=== PATIENT | male | born 1955 | race Caucasian/White ===

== ENCOUNTER 2016-09-24 14:50 | Inpatient (IN) | payer BC ==
--- NOTE | ~2016-09-24 | DS ---
Unit #: [id number] #: [id number] Patient: MARK CHUNG [id number] [address] [place], [place] [address] [id number] MR#: [id number] NAME: MARK CHUNG. ROOM: 560 Age: 61 Sex: M Admission Date: 09/24/2016 : 1955 Discharge Date: 09/28/2016 Attending Physician: Isatu Reece M.D. Primary Care Physician: Jamison Cheng Jr., M.D. DISCHARGE SUMMARY PRIMARY CARE PHYSICIAN MD2U. PRINCIPAL DIAGNOSES 1. Non-ST segment elevation myocardial infarction. 2. Acute kidney injury on chronic kidney disease stage 3 with discharge creatinine of 1.1. 3. Systemic inflammatory response syndrome. 4. Urinary obstruction secondary to benign prostatic hypertrophy. 5. Chronic atrial fibrillation, maintained rate control anticoagulation. 6. Nonsustained ventricular tachycardia. 7. Toxic metabolic encephalopathy likely secondary to acute kidney injury, now resolved. 8. Chronic thrombocytopenia. 9. Depression. 10. History of stroke. 11. Coronary artery disease, nonobstructive. 12. Gastroesophageal reflux disease. 13. Mild aortic stenosis. 14. Mild aortic regurgitation. 15. Onychomycosis. 16. Seizure disorder. CONSULTANTS Dr. Rivera, Cardiology. PROCEDURES 1. 2-dimensional echocardiogram on 08/25/2016 with ejection fraction of 50% to 55%. Moderate concentric left ventricular hypertrophy noted. Moderate aortic valve calcification with moderate aortic stenosis. Aortic valve area 1.3 cm2. Mild aortic regurgitation, mitral annular calcification, and mitral regurgitation noted. 2. Left-sided heart catheterization of 09/27/2016 with normal left ventricular function. No significant gradient across the aortic valve. Left main, LAD normal. Left circ had 30% to 40% stenosis. Right coronary had a 50% to 60% proximal stenosis caused by ulcerative plaque. 3. Chest x-ray on 09/24/2016 with no acute findings. 4. CT of the head without contrast on 09/24/2016 with encephalomalacia involving the entire right basal ganglia and periventricular white matter on the right. This extends the right parietal cortex. There is ipsilateral dilatation of the right lateral ventricle. 5. Bilateral renal ultrasound on 09/25/2016 with cortical thinning within the right kidney. Hyperechoic structures in both kidneys secondary to Unit #: [id number] #: [id number] Patient: MARK CHUNG vascular calcifications. Enlarged prostate noted. CLINICAL HISTORY AND HOSPITAL COURSE Mr. Chung is a nice 61-year-old male, who presents to the emergency department after a fall at home. He was also noted to be mildly confused. In the emergency department, the patient's urinalysis concerning for urinary tract infection. He was also found to be in atrial fibrillation with RVR. The patient was placed on metoprolol, empiric antibiotics, and subsequently admitted. In regard to the patient's urinary tract infection, again he was continued on Rocephin, but his urine culture was negative. Antibiotics were discontinued. He did meet SIRS criteria. He has had no fever, no leukocytosis during hospitalization. We will not continue any recurrent IV fluids. In regard to the patient's acute kidney injury, he was placed on IV fluids. A Yoon catheter was placed. Creatinine has now normalized to 1.1. His nephrotoxins medication has been discontinued i.e., his lisinopril/HCTZ has been changed to Norvasc. I am currently going to remove Yoon and await urine output. I have also placed him on Flomax due to BPH. Urine function will be followed up as an outpatient. On following admission, the patient had a mild bump in troponins 0.18 to high 0.32, and is now trending down. Cardiology was consulted. The patient subsequently underwent left-sided heart catheterization with findings as noted and he will undergo medical management only. I have also noted the patient may have recurrent nonsustained ventricular tachycardia, but his magnesium was low and we will continue magnesium supplementation upon discharge. His nonsustained ventricular tachycardia was asymptomatic. This will be followed up by Cardiology as an outpatient. The patient's other chronic condition remained stable. He is significantly weak and the family is wishing for discharge to assisted living which has already been arranged. Assuming the patient urinates, he could be discharged to assisted living later today. DISCHARGE CONDITION Stable. DISCHARGE STATUS Discharged to assisted living. DISCHARGE MEDICATIONS Flomax 0.4 mg daily with one refill; magnesium oxide 400 mg p.o. b.i.d. with one refill, Xarelto 15 mg daily, Keppra 1000 mg b.i.d., Zoloft 100 mg daily, clotrimazole 1% cream topically b.i.d. to rash on feet and toenails, Norvasc 5 mg daily with one refill, metoprolol succinate 100 mg b.i.d., Lipitor 10 mg at bedtime, aspirin 81 mg daily, Protonix 40 mg daily, Flexeril 5 mg b.i.d., nitroglycerin 0.4 mg sublingual q.5 minutes p.r.n. for chest pain number given is 50, vitamin D 50,000 units every 7 days. DISCHARGE INSTRUCTIONS The patient was instructed to follow a heart healthy diet. He can increase activity as tolerated. FOLLOWUP Unit #: [id number] #: [id number] Patient: MARK CHUNG The patient will follow up with Dr. Rivera and I have instructed the patient should follow up with MD2U in approximately 2 weeks. I recommend outpatient monitoring of renal function and perhaps outpatient urology referral if he develops recurrent urinary symptoms and/or acute kidney injury. Time spent on discharge 33 minutes. Dictated by... Isatu Reece M.D. WINIFRED/maria del rosario TD: 09/30/2016 02:55 JOB #: [id number] DISCHARGE SUMMARY X Isatu Reece MD DISCHARGE SUMMARY
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
--- NOTE | ~2016-09-24 | EKG ---
PATIENT: MARK LORENZO UNIT #: [id number] Ventricular Rate: 96 BPM Atrial Rate: 100 BPM QRS Duration: 110 ms Q-T Interval: 396 ms QTC Calculation(Bezet): 500 ms Calculated R [place]: 69 degrees Calculated T [place]: -45 degrees Diagnosis Line: Atrial fibrillation Diagnosis Line: T wave abnormality, consider lateral ischemia or Diagnosis Line: digitalis effect Diagnosis Line: Prolonged QT Diagnosis Line: Abnormal ECG Diagnosis Line: When compared with ECG of 26-SEP-2016 05:38, Diagnosis Line: Questionable change in QRS axis Diagnosis Line: Nonspecific T wave abnormality no longer evident Diagnosis Line: in Inferior leads Diagnosis Line: Confirmed by AYLIN ALEJANDRO MD ([id number]) on 09/29/2016 Diagnosis Line: 2:41:47 PM INTERPRETING MD: FLAVIA RYAN
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
--- NOTE | ~2016-09-24 | US77 ---
[facility] A Service of [facility] & [facility] RADIOLOGY TEXT RESULTS PATIENT: MARK LORENZO LOCATION: [facility] 560-01 : [birth year] UNIT #: [id number] AGE: [address]: Isatu Reece MD SEX: M ORDER DR: [id number] [facility] [address] [place], [place] [address] [id number] I MR#: [id number] Acc #: [id number] NAME: MARK LORENZO. : 1955 SEX: M STUDY DATE/TIME: 09/25/2016 15:45 UNIT: [facility] ROOM: [facility] STUDY DESCRIPTION: US Kidney Bilateral Complete Attending Physician: Isatu Reece M.D. Ordering Physician: Isatu Reece M.D. Primary Care Physician: Jamison Cheng Jr., M.D. MEDICAL IMAGING REPORT This report is preliminary unless electronic signature is present EXAM Bilateral renal ultrasound 09/25/2016 HISTORY Acute kidney injury. Patient has a creatinine of 2.1 and GFR 34.1 TECHNIQUE Tena-scale and color Doppler sonographic images were obtained through the kidneys and bladder. FINDINGS No solid or cystic renal masses are identified in either kidney. There is no evidence of hydronephrosis. Bladder is decompressed with a Yoon catheter. Patient does appear to have cortical thinning within the right kidney in particular which may reflect the sequela of prior insults. There are some hyperdensities identified within both kidneys, which the photoengraving proofer feels are probably vascular calcifications although certainly the presence of nonobstructing stones is not excluded. Patient's prostate gland is enlarged. IMPRESSION 1. No solid or cystic renal mass is identified. No hydronephrosis seen. 2. Areas of cortical thinning seen within the right kidney may reflect sequela of prior insults. 3. There are hyperechoic structures seen within both kidneys. Director Insurance feels that these are most likely vascular calcifications. Certainly the possibility of some nonobstructing stones is not excluded. 4. Bladder is decompressed with a Yoon catheter and the prostate gland is enlarged. Dictated by... Leonarda Partida M.D. [facility] A Service of [facility] & [facility] RADIOLOGY TEXT RESULTS PATIENT: MARK LORENZO LOCATION: [facility] 560-01 : [birth year] UNIT #: [id number] AGE: [address]: Isatu Reece MD SEX: M ORDER DR: THIS IS AN ELECTRONICALLY VERIFIED REPORT Leonarda Partida M.D. at 09/26/2016 10:54 AM BENNIE/adair TD: 09/25/2016 18:54 JOB #: [id number] MEDICAL IMAGING REPORT COPY
--- NOTE | ~2016-09-24 | EKG ---
PATIENT: MARK LORENZO UNIT #: [id number] Ventricular Rate: 84 BPM Atrial Rate: 89 BPM QRS Duration: 106 ms Q-T Interval: 390 ms QTC Calculation(Bezet): 460 ms Calculated R [place]: 6 degrees Calculated T [place]: -153 degrees Diagnosis Line: Atrial fibrillation with premature ventricular or Diagnosis Line: aberrantly conducted complexes Diagnosis Line: Cannot rule out Anterior infarct , age Diagnosis Line: undetermined Diagnosis Line: Abnormal ECG Diagnosis Line: When compared with ECG of 24-SEP-2016 15:09, Diagnosis Line: No significant change was found Diagnosis Line: Confirmed by AYLIN ALEJANDRO MD ([id number]) on 09/26/2016 Diagnosis Line: 7:10:11 AM INTERPRETING MD: FLAVIA RYAN
--- NOTE | ~2016-09-24 | CR72 ---
[facility] A Service of [facility] RADIOLOGY TEXT RESULTS PATIENT: MARK LORENZO LOCATION: [facility] 560-01 : [birth year] UNIT #: [id number] AGE: [address]: Isatu Reece MD SEX: M ORDER DR: [id number] [facility] [address] [place], [place] [address] [id number] MR#: [id number] Acc #: [id number] NAME: MARK LORENZO. : 1955 SEX: M STUDY DATE/TIME: 09/24/2016 15:33 UNIT: JIAN ROOM: STUDY DESCRIPTION: CR Chest Single View Portable Attending Physician: Alex Schumacher M.D. Ordering Physician: Alex Schumacher M.D. Primary Care Physician: Jamison Cheng Jr., M.D. MEDICAL IMAGING REPORT This report is preliminary unless electronic signature is present EXAM Portable chest 09/24 INDICATIONS Chest pain, shortness of air and acute mental status changes that started yesterday. History of hypertension. TECHNIQUE/COMPARISON AP portable chest is compared with 06/08/2015 FINDINGS Granulomatous calcifications are noted in the left hilum. Cardiac and mediastinal contours are within normal limits. The lungs are clear. No pneumothorax is seen. Vascularity is normal. IMPRESSION No active disease. Dictated by... Mark Bethea Jr., M.D. THIS IS AN ELECTRONICALLY VERIFIED REPORT Mark Bethea Jr., M.D. at 09/25/2016 8:47 AM RLK/cora TD: 09/24/2016 17:57 JOB #: [id number] MEDICAL IMAGING REPORT COPY
--- NOTE | ~2016-09-24 | EKG ---
PATIENT: MARK LORENZO UNIT #: [id number] Ventricular Rate: 122 BPM Atrial Rate: 136 BPM QRS Duration: 100 ms Q-T Interval: 348 ms QTC Calculation(Bezet): 495 ms Calculated R [place]: -23 degrees Calculated T [place]: 145 degrees Diagnosis Line: Atrial fibrillation with rapid ventricular Diagnosis Line: response Diagnosis Line: Nonspecific ST and T wave abnormality Diagnosis Line: Abnormal ECG Diagnosis Line: When compared with ECG of 17-JUL-2016 12:08, Diagnosis Line: Nonspecific T wave abnormality now evident in Diagnosis Line: Anterior leads Diagnosis Line: Confirmed by AYLIN ALEJANDRO MD ([id number]) on 09/25/2016 Diagnosis Line: 7:18:33 AM INTERPRETING MD: FLAVIA RYAN
--- NOTE | ~2016-09-24 | CT71 ---
[facility] A Service of [facility] RADIOLOGY TEXT RESULTS PATIENT: MARK LORENZO LOCATION: C5B 560-01 : 51 UNIT #: [id number] AGE: [address]: Isatu Reece MD SEX: M ORDER DR: [id number] [facility] [address] [place], [place] [address] [id number] MR#: [id number] Acc #: [id number] NAME: MARK LORENZO. : 1955 SEX: M STUDY DATE/TIME: 09/24/2016 16:11 UNIT: [facility] ROOM: STUDY DESCRIPTION: CT Head Wo Contrast Attending Physician: Alex Schumacher M.D. Ordering Physician: Alex Schumacher M.D. Primary Care Physician: Jamison Cheng Jr., M.D. MEDICAL IMAGING REPORT This report is preliminary unless electronic signature is present EXAM CT of the brain without contrast. DATE OF EXAM 09/24/2016 COMPARISON 06/08/2015 HISTORY Fell out of wheelchair last evening, found on floor, confused. TECHNIQUE Transaxial imaging of the brain was performed without contrast and is directly compared to the patient's most recent examination of June 08, 2015. NOTE: This CT exam was performed with one or more of the following radiation dose reduction techniques: automatic exposure control, adjustment of mA and/or kV according to patient size, and iterative reconstruction. FINDINGS There is generalized enlargement of the ventricles and CSF-containing spaces. There is an area of encephalomalacia within the right basal ganglia extending into the right parietal lobe involving the white matter and cortex. This is a relatively small segment. There is involvement of the periventricular white matter on the right. The right lateral ventricle shows ipsilateral compensatory dilatation. I do not see any mass lesions, mass effect evidence of acute hemorrhage or edema. No intra or extraaxial fluid collections are present. Bone windows are reviewed. No fractures are identified. CONCLUSION Area of encephalomalacia likely related to a prior stroke involving the [facility] A Service [facility] RADIOLOGY TEXT RESULTS PATIENT: MARK LORENZO LOCATION: C5B 560-01 : 51 UNIT #: [id number] AGE: [address]: Isatu Reece MD SEX: M ORDER DR: entire right basal ganglia and with some involvement of the periventricular white matter on the right and extending out to the right parietal cortex in 1 small area. There is ipsilateral dilatation of the right lateral ventricle. No acute intracranial findings. Dictated by... Zack Calderón M.D. THIS IS AN ELECTRONICALLY VERIFIED REPORT Zack Calderón M.D. at 09/26/2016 4:49 PM CRISTOPHER/manuel TD: 09/24/2016 19:48 JOB #: [id number] MEDICAL IMAGING REPORT COPY
[~2016-09-24 14:50] MED LIST: ASPIRIN PO; BENZONATATE200 M1 PO; COUMADIN5 MG PO; IMODIUM2 MG PO; LIPITOR PO; PROTONIX PO; VITAMIN D50000 UNIT PO; ZOLOFT PO
[2016-09-24 16:04] LABS: ALBUMIN SERUM 3.8 g/dL (3.5-5.0); BILIRUBIN,TOTAL 1.1 mg/dL (0.2-2.0); BUN/CREATININE RATIO 28.8; CALCIUM SERUM 9.3 mg/dL (8.4-10.2); CREATININE SERUM 2.5 mg/dL (0.6-1.4); GLOM FILT RATE Estimated 27.9 mL/min (>60); POTASSIUM 4.9 mmol/L (3.5-5.1); PROTEIN TOTAL SERUM 7.3 g/dL (6.0-8.3)
[2016-09-24 16:06] LABS: BASOPHIL# 0.1 X10e3 (0-0.3); BASOPHIL% 0.4 % (0-2.5); EOSINOPHIL% 0.1 % (0.0-7.0); HEMATOCRIT 40.8 % (38.0-50.0); HEMOGLOBIN 13.3 gm/dL (13.0-16.0); LYMPHOCYTE# 1.4 X10e3 (1.0-3.5); LYMPHOCYTE% 7.9 % (17.0-45.0); MEAN CELL VOLUME 85.3 FL (83-96); MEAN CORPUSCULAR HEMOGLOBIN 27.8 PG (28-34); MEAN CORPUSCULAR HGB CONC 32.5 g/dL (30-36); MEAN PLATELET VOLUME 10.4 FL (6.5-11.5); MONOCYTE# 0.7 X10e3 (0-1.0); NEUTROPHIL# 15.9 X10e3 (1.5-7.1); NEUTROPHIL% 87.6 % (40-75); PLATELET COUNT 90 X10e3 (140-420); RED BLOOD COUNT 4.79 X10e (3.90-5.60); RED CELL DISTRIBUTION WIDTH 15.4 % (11.0-15.5); WHITE BLOOD COUNT 18.1 X10e3 (4.0-10.5)
[2016-09-24 16:12] LABS: DIFF IND YES
[2016-09-24] MEDS ORDERED: LEVETIRACETAM1000 MG PO (17:13)
[2016-09-24] MEDS ORDERED: ATORVASTATIN CA10 MG PO (17:14)
[2016-09-24] MEDS ORDERED: METOPROLOL SUC100 MG PO (17:14)
[2016-09-24] MEDS ORDERED: XARELTO15 MG PO (17:14)
[2016-09-24] MEDS ORDERED: SERTRALINE HCL100 M1 PO (17:14)
[2016-09-24] MEDS ORDERED: LISINOPRIL-HCTZ1 T14 PO (17:15)
[2016-09-24] MEDS ORDERED: VITAMIN D50000 UNIT PO (17:15)
[2016-09-24] MEDS ORDERED: CYCLOBENZAPRINE5 MG PO (17:16)
[2016-09-24 17:25] LABS: URINE APPEARANCE TURBID; URINE BILIRUBIN NEG (NEG); URINE BLOOD 3+ (NEG); URINE COLOR YELLOW; URINE GLUCOSE NEG (NEG); URINE KETONE TRACE (NEG); URINE LEUKOCYTE ESTERASE 3+ (NEG); URINE NITRATE NEG (NEG); URINE PH 7.5 (5-8); URINE PROTEIN 1+ (NEG); URINE SPECIFIC GRAVITY 1.019 (1.003-1.035); URINE UROBILINOGEN 0.2 MG/DL (NEG)
[2016-09-24 17:36] LABS: ANISOCYTOSIS MOD; PLATELET ESTIMATE DECREASED (NORMAL); POIKILOCYTOSIS SL
[2016-09-24 17:42] LABS: CULTURE INDICATED? YES; URINE BACTERIA AUWI 2+ (NEGATIVE); URINE SQUAMOUS EPITHELIAL CELL OCCAS /[HPF]
[2016-09-24 18:46] LABS: POC - CKMB 19.8 ng/mL (0.0-7.9); POC - TROPONIN 0.13 ng/mL (<=0.05)
[2016-09-24 19:59] LABS: INR 1.1; PARTIAL THROMBOPLASTIN TIME 32.9 SECONDS (23.5-31.3)
[2016-09-25 03:36] LABS: BASOPHIL# 0.1 X10e3 (0-0.3); BASOPHIL% 0.6 % (0-2.5); DIFF IND NO; EOSINOPHIL# 0.1 X10e3 (0-0.7); EOSINOPHIL% 0.6 % (0.0-7.0); HEMOGLOBIN 12.4 gm/dL (13.0-16.0); LYMPHOCYTE# 1.5 X10e3 (1.0-3.5); LYMPHOCYTE% 10.1 % (17.0-45.0); MEAN CELL VOLUME 85.3 FL (83-96); MEAN CORPUSCULAR HEMOGLOBIN 27.9 PG (28-34); MEAN CORPUSCULAR HGB CONC 32.7 g/dL (30-36); MEAN PLATELET VOLUME 10.6 FL (6.5-11.5); MONOCYTE# 0.8 X10e3 (0-1.0); MONOCYTE% 5.4 % (3.0-12.0); NEUTROPHIL# 12.1 X10e3 (1.5-7.1); NEUTROPHIL% 83.3 % (40-75); PLATELET COUNT 89 X10e3 (140-420); RED BLOOD COUNT 4.45 X10e (3.90-5.60); WHITE BLOOD COUNT 14.5 X10e3 (4.0-10.5)
[2016-09-25 03:44] LABS: CALCIUM SERUM 8.6 mg/dL (8.4-10.2); CREATININE SERUM 2.1 mg/dL (0.6-1.4); GLOM FILT RATE Estimated 34.1 mL/min (>60); POTASSIUM 3.8 mmol/L (3.5-5.1)
[2016-09-25 16:14] LABS: CREATININE,RANDOM URINE 79 mg/dL; SODIUM URINE RANDOM 94 mmol/L
[2016-09-26 05:42] LABS: HEMATOCRIT 31.7 % (38.0-50.0); MEAN CELL VOLUME 86.1 FL (83-96); MEAN CORPUSCULAR HEMOGLOBIN 27.7 PG (28-34); MEAN CORPUSCULAR HGB CONC 32.2 g/dL (30-36); MEAN PLATELET VOLUME 9.5 FL (6.5-11.5); RED BLOOD COUNT 3.68 X10e (3.90-5.60); RED CELL DISTRIBUTION WIDTH 15.2 % (11.0-15.5)
[2016-09-26 06:06] LABS: WHITE BLOOD COUNT 7.2 X10e3 (4.0-10.5)
[2016-09-26 06:08] LABS: HEMOGLOBIN 10.2 gm/dL (13.0-16.0)
[2016-09-26 06:27] LABS: BLOOD UREA NITROGEN 42 mg/dL (9-23); BUN/CREATININE RATIO 38.18; CARBON DIOXIDE 22 mmol/L (22-31); CHLORIDE 115 mmol/L (100-111); CHOLESTEROL 81 mg/dL (0-200); CREATININE SERUM 1.1 mg/dL (0.6-1.4); GLOM FILT RATE Estimated ABOVE60 mL/min (>60); GLUCOSE FASTING 64 mg/dL (70-110); HDL CHOLESTEROL 21 mg/dL (29-75); LDL CHOLESTEROL 37 mg/dL (-130); LDL/HDL RATIO 2 RATIO (0-4); MAGNESIUM 1.4 mg/dL (1.6-3.0); POTASSIUM 3.6 mmol/L (3.5-5.1); SODIUM 139 mmol/L (135-145); TRIGLYCERIDES 114 mg/dL (10-160)
[2016-09-27 06:18] LABS: HEMATOCRIT 34.4 % (38.0-50.0); HEMOGLOBIN 11.3 gm/dL (13.0-16.0); MEAN CELL VOLUME 85.3 FL (83-96); MEAN CORPUSCULAR HGB CONC 32.9 g/dL (30-36); MEAN PLATELET VOLUME 9.7 FL (6.5-11.5); RED BLOOD COUNT 4.03 X10e (3.90-5.60); RED CELL DISTRIBUTION WIDTH 15.1 % (11.0-15.5); WHITE BLOOD COUNT 6.3 X10e3 (4.0-10.5)
[2016-09-27 06:30] LABS: PARTIAL THROMBOPLASTIN TIME 22.7 SECONDS (23.5-31.3); PROTHROMBIN TIME (PATIENT) 10.7 SECONDS (9.6-11.5)
[2016-09-27 07:38] LABS: BLOOD UREA NITROGEN 33 mg/dL (9-23); CALCIUM SERUM 8.8 mg/dL (8.4-10.2); CARBON DIOXIDE 22 mmol/L (22-31); CHLORIDE 108 mmol/L (100-111); CREATININE SERUM 1.1 mg/dL (0.6-1.4); GLOM FILT RATE Estimated ABOVE60 mL/min (>60); GLUCOSE FASTING 86 mg/dL (70-110); MAGNESIUM 1.7 mg/dL (1.6-3.0); POTASSIUM 4.2 mmol/L (3.5-5.1); SODIUM 138 mmol/L (135-145)
[2016-09-28] MEDS ORDERED: FLOMAX0.4 M1 PO (13:22)
[2016-09-28] MEDS ORDERED: MAG-OXIDE400 MG PO (13:25)
[2016-09-28] MEDS ORDERED: LOTRIMIN 1% CR30 GM EXT (13:26)
[2016-09-28] MEDS ORDERED: NORVASC PO (13:28)
[2016-09-28] MEDS ORDERED: CHEWABLE ASPIRI81 MG PO (13:29)
[2016-09-28] MEDS ORDERED: PROTONIX PO (13:30)
[2016-09-28] MEDS ORDERED: NITROGLYCERIN0.4 MG SL (13:33)
== END 2016-09-28 14:20 | disposition home or self-care (01) | DRG 280 ==
LOC: CED 14:50 → CEDOF 19:37 → C4B 21:25 → C5B 09-25 08:01
PROVIDERS: Emergency Medicine; Internal Medicine; Internal Medicine Cardiovascular Disease
PROC: B24BYZZ Ultrasonography of Heart with Aorta using Other Contrast (ICD-10-PCS; 2016-09-25)
PROC: 4A023N7 Measurement of Cardiac Sampling and Pressure, Left Heart, Percutaneous Approach (ICD-10-PCS; principal; 2016-09-27)
PROC: B211YZZ Fluoroscopy of Multiple Coronary Arteries using Other Contrast (ICD-10-PCS; 2016-09-27)
PROC: B215YZZ Fluoroscopy of Left Heart using Other Contrast (ICD-10-PCS; 2016-09-27)
PROC: 0HBRXZZ Excision of Toe Nail, External Approach (ICD-10-PCS; 2016-09-27)
PROC: 0HBRXZZ Excision of Toe Nail, External Approach (ICD-10-PCS; 2016-09-27)
PROC: 0HBRXZZ Excision of Toe Nail, External Approach (ICD-10-PCS; 2016-09-27)
PROC: 0HBRXZZ Excision of Toe Nail, External Approach (ICD-10-PCS; 2016-09-27)
PROC: 0HBRXZZ Excision of Toe Nail, External Approach (ICD-10-PCS; 2016-09-27)
PROC: 0HBRXZZ Excision of Toe Nail, External Approach (ICD-10-PCS; 2016-09-27)
PROC: 0HBRXZZ Excision of Toe Nail, External Approach (ICD-10-PCS; 2016-09-27)
PROC: 0HBRXZZ Excision of Toe Nail, External Approach (ICD-10-PCS; 2016-09-27)
PROC: 0HBRXZZ Excision of Toe Nail, External Approach (ICD-10-PCS; 2016-09-27)
PROC: 0HBRXZZ Excision of Toe Nail, External Approach (ICD-10-PCS; 2016-09-27)
DX: I21.4 Non-ST elevation (NSTEMI) myocardial infarction (principal); G92 Toxic encephalopathy; I47.2 Ventricular tachycardia; R65.10 Systemic inflammatory response syndrome (SIRS) of non-infectious origin without acute organ dysfunction; N17.9 Acute kidney failure, unspecified; I69.954 Hemiplegia and hemiparesis following unspecified cerebrovascular disease affecting left non-dominant side; N18.3 Chronic kidney disease, stage 3 (moderate); N13.8 Other obstructive and reflux uropathy; N39.0 Urinary tract infection, site not specified; Z79.01 Long term (current) use of anticoagulants; K21.9 Gastro-esophageal reflux disease without esophagitis; F32.9 Major depressive disorder, single episode, unspecified; W19.XXXA Unspecified fall, initial encounter; Z91.81 History of falling; I25.110 Atherosclerotic heart disease of native coronary artery with unstable angina pectoris; R07.89 Other chest pain; I48.2 Chronic atrial fibrillation; I08.0 Rheumatic disorders of both mitral and aortic valves; B35.1 Tinea unguium; B35.3 Tinea pedis; N40.1 Benign prostatic hyperplasia with lower urinary tract symptoms; G40.909 Epilepsy, unspecified, not intractable, without status epilepticus
CPT/HCPCS: 36415; 70450; 71010; 76770; 80048; 80053; 80061; 81003; 82140; 82553; 82570; 83605; 83735; 84300; 84443; 84484; 85025; 85027; 85610; 85730; 87040; 87086; 93005; 93306; 96361; 96374; 96375; 97163; 97167; 97530; 99291; C1769; C1887; C1894; G0378; J0696; J1644; J1650; J2250; J3010